=== PATIENT | male | born 1955 | race Caucasian/White ===

== ENCOUNTER 2017-09-21 12:27 | Inpatient (IN) | payer MEDICARE ==
[~2017-09-21] VITALS: Ht 182.9 cm; Wt 68.6 kg
[2017-09-21 14:00] VITALS: BP 104/60
[2017-09-21 16:00] VITALS: BP 94/61
[2017-09-21 16:28] LABS: BASOPHILS # (AUTO) 0.1 (0.0-0.1); BASOPHILS % 0.9 % (0.0-1.0); EOSINOPHILS # (AUTO) 0.4 (0.0-0.4); EOSINOPHILS % 4.2 % (0.0-6.0); HEMATOCRIT 36.9 % (38.2-49.6); LYMPHOCYTES # (AUTO) 2.4 (1.0-3.2); LYMPHOCYTES % 25.3 % (18.0-39.1); MEAN CORPUSCULAR HEMOGLOBIN 28.9 pg (28-32); MEAN CORPUSCULAR HGB CONC 32.5 g/dL (31-35); MEAN CORPUSCULAR VOLUME 88.9 fL (81-99); MONOCYTES # (AUTO) 0.7 (0.2-0.8); MONOCYTES % 7.5 % (4.4-11.3); NEUTROPHILS # (AUTO) 5.8 (2.1-6.9); NEUTROPHILS % 61.9 % (38.7-80.0); PLATELET COUNT 358 x10e3/uL (140-360); RED BLOOD COUNT 4.15 x10e6/uL (4.3-5.7); RED CELL DISTRIBUTION WIDTH 15.3 % (11.7-14.4)
[2017-09-21 16:42] LABS: ANION GAP 11.4 mmol/L (8-16); BLOOD UREA NITROGEN 10 mg/dL (7-26); BUN/CREATININE RATIO 23 (6-25); CALCIUM 9.3 mg/dL (8.4-10.2); CARBON DIOXIDE 29 mmol/L (22-29); CHLORIDE 102 mmol/L (98-107); CREATININE, SERUM 0.44 mg/dL (0.72-1.25); EST GLOMERULAR FILTRATION RATE > 60 ML/MIN (60-); GLUCOSE 103 mg/dL (74-118); POTASSIUM 4.4 mmol/L (3.5-5.1); SODIUM 138 mmol/L (136-145)
[2017-09-21] MEDS ORDERED: CLONAZEPAM1 MG PO (18:11)
[2017-09-21] MEDS ORDERED: GABAPENTIN400 MG PO (18:11)
[2017-09-21] MEDS ORDERED: MIDODRINE HCL2.5 MG PO (18:11)
[2017-09-21] MEDS ORDERED: NORCO 10-325 T1 EACH PO (18:14)
[2017-09-21] MEDS ORDERED: OXYBUTYNIN CHLOR5 MG PO (18:14)
[2017-09-21] MEDS ORDERED: OMEPRAZOLE40 MG (18:14)
[2017-09-21] MEDS ORDERED: SIMVASTATIN40 MG PO (18:17)
[2017-09-21] MEDS ORDERED: LUNESTA2 MG PO (18:17)
[2017-09-21] MEDS ORDERED: NITROFURANTOIN100 MG PO (19:00)
[2017-09-21] MEDS ORDERED: AMITIZA24 MCG PO (19:28)
[2017-09-21 20:28] VITALS: BP 116/60
[2017-09-21] MEDS: MIDODRINE HCL 5 MG TABLET PO SCH (20:54)
[2017-09-21] MEDS: GABAPENTIN 300 MG CAP PO SCH (20:54)
[2017-09-21] MEDS: PIPER-TAZ 3.375 GM 50 ML IV SCH ×2 (20:59→21:00)
[2017-09-21] MEDS ORDERED: SODIUM CHLORIDE 0.9% 250ML 250 ML ONE (21:41)
[2017-09-21] MEDS: ZOLPIDEM TARTRATE 5 MG TAB PO PRN ×2 (21:44→22:30)
[2017-09-21 22:50] VITALS: BP 116/60
[2017-09-21 23:30] VITALS: BP 127/61
[2017-09-22] MEDS ORDERED: PIPER-TAZ 3.375 GM 50 ML IV SCH (03:00)
[2017-09-22] MEDS ORDERED: MUCINEX DM ER1 EACH PO (03:15)
[2017-09-22] MEDS: GUAIFENESIN 600MG/DEXTROMETHORPHAN 30MG TABSR PO SCH ×2 (03:15→15:15)
[2017-09-22] MEDS ORDERED: SUMATRIPTAN SUC25 MG PO (03:15)
[2017-09-22] MEDS ORDERED: DIPHENHYDRAMINE HCL 25 MG CAP PO PRN (03:15)
[2017-09-22] MEDS ORDERED: BENADRYL25 M1 (03:15)
[2017-09-22] MEDS ORDERED: SUMATRIPTAN SUCCINATE 25 MG TAB PO PRN (03:15)
[2017-09-22 04:00] VITALS: BP 90/53
[2017-09-22 06:05] VITALS: BP 90/53
[2017-09-22 08:00] VITALS: BP 94/54
[2017-09-22 08:22] LABS: BASOPHILS # (AUTO) 0.1 (0.0-0.1); BASOPHILS % 0.8 % (0.0-1.0); EOSINOPHILS # (AUTO) 0.3 (0.0-0.4); HEMATOCRIT 35.7 % (38.2-49.6); HEMOGLOBIN 11.7 g/dL (14.0-18.0); LYMPHOCYTES # (AUTO) 2.2 (1.0-3.2); LYMPHOCYTES % 25.7 % (18.0-39.1); MEAN CORPUSCULAR HEMOGLOBIN 29.1 pg (28-32); MEAN CORPUSCULAR HGB CONC 32.8 g/dL (31-35); MEAN CORPUSCULAR VOLUME 88.8 fL (81-99); MONOCYTES # (AUTO) 0.7 (0.2-0.8); MONOCYTES % 8.7 % (4.4-11.3); NEUTROPHILS # (AUTO) 5.3 (2.1-6.9); NEUTROPHILS % 61.6 % (38.7-80.0); PLATELET COUNT 382 x10e3/uL (140-360); RED BLOOD COUNT 4.02 x10e6/uL (4.3-5.7)
[2017-09-22 08:43] LABS: ALANINE AMINOTRANSFERASE 19 IU/L (0-55); ALBUMIN 3.7 g/dL (3.5-5.0); ALBUMIN/GLOBULIN RATIO 1.2 (0.8-2.0); ALKALINE PHOSPHATASE 86 IU/L (40-150); ANION GAP 11.9 mmol/L (8-16); BLOOD UREA NITROGEN 9 mg/dL (7-26); BUN/CREATININE RATIO 20 (6-25); CALCIUM 9.3 mg/dL (8.4-10.2); CARBON DIOXIDE 27 mmol/L (22-29); CHLORIDE 100 mmol/L (98-107); CREATININE, SERUM 0.45 mg/dL (0.72-1.25); EST GLOMERULAR FILTRATION RATE > 60 ML/MIN (60-); GLUCOSE 91 mg/dL (74-118); POTASSIUM 3.9 mmol/L (3.5-5.1); SODIUM 135 mmol/L (136-145)
[2017-09-22] MEDS: MIDODRINE HCL 5 MG TABLET PO SCH ×3 (09:13→21:00)
[2017-09-22] MEDS: GABAPENTIN 300 MG CAP PO SCH ×3 (09:13→21:00)
[2017-09-22] MEDS: LUBIPROSTONE 24 MCG CAP PO SCH ×2 (09:13→16:30)
[2017-09-22] MEDS: NITROFURANTOIN MACROCRYSTALS 100 MG CAP PO SCH (09:13)
--- NOTE | 2017-09-22 09:16 | History and Physical ---
PRIMARY CARE PHYSICIAN: Dr. Son UROLOGIST: Dr. Perez in the [facility]. CHIEF COMPLAINT: Multidrug-resistant urinary tract infection. HISTORY OF PRESENT ILLNESS: This is a 62-year-old man who has multiple sclerosis being bedbound since 1989. Has a suprapubic catheter and has had recurrent infections associated with the catheter. Now, the patient was found to have multidrug-resistant organism by his home health services. Therefore, he was sent to the hospital. The actual organism is unclear. I do not have much information. I have discussed with the patient's telephone. She also does not know the name of the organism, but knows that it is multidrug-resistant. The patient has been started on meropenem and urology has been consulted. PAST MEDICAL HISTORY: Recurrent urinary tract infections, multiple sclerosis, status post suprapubic catheter placement, bedbound status/ambulatory dysfunction since 1989. PAST SURGICAL HISTORY: Knee surgery, suprapubic catheter placement. ALLERGIES: PER ELECTRONIC MEDICAL RECORDS. FAMILY HISTORY/SOCIAL HISTORY: The patient is . He has no children. No alcohol, illicits or cigarettes. MEDICATIONS: Per electronic medical records. REVIEW OF SYSTEMS: Denies any dizziness or chest pain. PHYSICAL EXAMINATION VITAL SIGNS: Reviewed. GENERAL: A tired-appearing man resting in bed. HEENT: Anicteric. Pupils respond to light. No oral lesions. CARDIOVASCULAR: Normal S1 and S2. LUNGS: Moderate breath sounds. ABDOMEN: Soft, nontender and nondistended. : He has a suprapubic catheter in place. EXTREMITIES: No edema. SKIN: Dry. PSYCHIATRIC: Flat affect. NEUROLOGICAL: He is awake, alert and appropriate. Oriented times 3. He has contractures of all extremities, but his mental status is okay. He is able to provide all the history. LABS: Reviewed. MEDICATIONS: Reviewed. ASSESSMENT AND PLAN: A 62-year-old man with: 1. Multidrug-resistant urinary tract infection: Organism is unknown to me, but the patient's has the information and will bring it to the hospital. In the meantime, will continue meropenem. Urology has been consulted. Will obtain urine culture and urinalysis here from the catheter. Regarding catheter changing, I will defer to urology. 2. Multiple sclerosis: Will continue gabapentin. 3. Ambulatory dysfunction: Will turn the patient every 2 hours to avoid decubitus ulcer. 4. Normocytic anemia, mild: Will follow. 5. Hyperlipidemia: Will continue statin medication. 6. Prophylaxis: Will use Lovenox and Pepcid. 7. Disposition: Follow up cultures. Follow up urology recommendations. Job#: [id number] RI
[2017-09-22 12:00] VITALS: BP 114/63
--- NOTE | 2017-09-22 13:56 | History and Physical ---
ADDENDUM The patient's infection would be catheter-associated urinary tract infection with multidrug-resistant organism. Job#: [id number] RI
[2017-09-22] MEDS ORDERED: MEROPENEM 1GM 100 ML IV SCH (14:00)
[2017-09-22] MEDS: MEROPENEM 1 GM VIAL IV SCH (14:20)
[2017-09-22] MEDS: CLONAZEPAM 1 MG TAB PO SCH ×2 (15:00→21:00)
[2017-09-22 16:00] VITALS: BP 118/58
[2017-09-22] MEDS: FAMOTIDINE 20 MG TAB PO SCH (16:30)
[2017-09-22] MEDS: ENOXAPARIN SOD INJ 40 MG/0.4 ML SYR SC SCH (16:30)
--- NOTE | 2017-09-22 16:31 | Consultation ---
DATE OF CONSULTATION: September 22, 2017 UROLOGIC CONSULTATION CONSULTATION CALLED BY: Dr. Noonan. CHIEF UROLOGIC COMPLAINT/REASON FOR CONSULTATION: Neurogenic bladder. HISTORY OF PRESENT ILLNESS: Jeffrey Kohler is a 62-year-old male with longstanding multiple sclerosis since 1989. He has had a chronic suprapubic tube and sees Dr. Gavino Perez downtown. He has had multiple chronic urinary tract infections, is admitted with an unknown infection. PAST MEDICAL HISTORY: As above. MEDICATIONS: Please see MAR. ALLERGIES: NKDA. SOCIAL HISTORY: No smoking, no drinking. FAMILY HISTORY: Denied urologic stones or malignancies. REVIEW OF SYSTEMS: Noncontributory other than problems mentioned above for 12 organ systems. PHYSICAL EXAMINATION: GENERAL: Elderly male in no acute distress. VITALS: Temperature 99.1. Pulse 65. Respirations 17. Blood pressure 94/54. HEENT: Sclerae anicteric. NECK: Supple. BACK: Without costovertebral angle tenderness. ABDOMEN: Soft, nontender. No masses. : Catheter draining clear yellow urine. EXTREMITIES: Contracted. NEUROLOGIC: Does not move extremities to command. PSYCH: Mood appropriate. SKIN: Normal color. PERTINENT LABORATORY DATA: Hemoglobin 12, hematocrit 36, platelet count 358,000, white cell count 9360. Sodium 138, potassium 4.4, chloride 102, bicarb 29, BUN 10, creatinine 0.44, glucose 103. IMPRESSION: 1. Chronic suprapubic tube. 2. Chronic urinary retention. 3. Neurogenic bladder. 4. Urinary tract infection. 5. Anemia. PLAN: 1. Will obtain a urinalysis with culture and sensitivity and adjust culture-specific antibiotics available. 2. Will obtain a renal ultrasound. 3. Will attempt to find out when the last time the patient's suprapubic tube was changed. Thank you for allowing me to participate in the care of your patient. We will be happy to follow him along with you. Job#: [id number] EV cc:ALFRED NOONAN MD
[2017-09-22 17:24] LABS: KETONES,URINE 1+ (NEGATIVE); LEUKOCYTE ESTERASE ,URINE 2+ (NEGATIVE); URINE UROBILINOGEN 1 mg/dL (0.2 - 1)
[2017-09-22 17:27] LABS: BILIRUBIN,URINE 1+ (NEGATIVE); CLARITY,URINE HAZY (CLEAR); COLOR,URINE AMBER (YELLOW); NITRITE,URINE POSITIVE (NEGATIVE); PROTEIN,URINE DIPSTICK TRACE (NEGATIVE)
[2017-09-22 17:32] LABS: BACTERIA,URINE FEW /HPF; CALCIUM OXALATE CRYSTALS,UR FEW (FEW); EPITHELIAL CELLS,URINE FEW /LPF; WBC,URINE (MAN) >50 /HPF (0-5)
[2017-09-22 17:33] LABS: MUCUS,URINE FEW (RARE)
[2017-09-22 20:00] VITALS: BP 110/66
[2017-09-22] MEDS: SIMVASTATIN 40 MG TAB PO SCH (21:00)
[2017-09-22] MEDS: ZOLPIDEM TARTRATE 5 MG TAB PO PRN (21:44)
[2017-09-23 00:10] VITALS: BP 123/59
[2017-09-23] MEDS: MEROPENEM 1 GM VIAL IV SCH ×4 (00:22→22:11)
[2017-09-23] MEDS: GUAIFENESIN 600MG/DEXTROMETHORPHAN 30MG TABSR PO SCH ×2 (03:15→14:32)
[2017-09-23 04:00] VITALS: BP 105/56
[2017-09-23 05:38] VITALS: BP 105/56
[2017-09-23] MEDS: NITROFURANTOIN MACROCRYSTALS 100 MG CAP PO SCH (08:25)
[2017-09-23] MEDS: FAMOTIDINE 20 MG TAB PO SCH ×2 (08:25→16:30)
[2017-09-23] MEDS: CLONAZEPAM 1 MG TAB PO SCH ×3 (08:25→20:39)
[2017-09-23] MEDS: LUBIPROSTONE 24 MCG CAP PO SCH ×2 (08:25→17:32)
[2017-09-23] MEDS: MIDODRINE HCL 5 MG TABLET PO SCH ×3 (08:25→20:39)
[2017-09-23] MEDS: GABAPENTIN 300 MG CAP PO SCH ×3 (08:25→20:39)
[2017-09-23 12:00] VITALS: BP 123/62
[2017-09-23] MEDS: OXYBUTYNIN CHLORIDE XL 5 MG TAB PO SCH (13:00)
[2017-09-23 16:00] VITALS: BP 121/61
[2017-09-23] MEDS: ENOXAPARIN SOD INJ 40 MG/0.4 ML SYR SC SCH (17:32)
[2017-09-23 20:00] VITALS: BP 117/62
[2017-09-23] MEDS: SIMVASTATIN 40 MG TAB PO SCH (20:39)
[2017-09-23] MEDS: ZOLPIDEM TARTRATE 5 MG TAB PO PRN (21:43)
[2017-09-24] VITALS (7 sets, daily range): BP systolic 94–132; BP diastolic 52–68
[2017-09-24] MEDS: GUAIFENESIN 600MG/DEXTROMETHORPHAN 30MG TABSR PO SCH ×2 (03:15→16:08)
[2017-09-24] MEDS: MEROPENEM 1 GM VIAL IV SCH (06:00)
[2017-09-24] MEDS: CLONAZEPAM 1 MG TAB PO SCH ×3 (09:05→20:08)
[2017-09-24] MEDS: GABAPENTIN 300 MG CAP PO SCH ×3 (09:05→20:08)
[2017-09-24] MEDS: NITROFURANTOIN MACROCRYSTALS 100 MG CAP PO SCH (09:05)
[2017-09-24] MEDS: OXYBUTYNIN CHLORIDE XL 5 MG TAB PO SCH (09:05)
[2017-09-24] MEDS: LUBIPROSTONE 24 MCG CAP PO SCH ×2 (09:05→16:57)
[2017-09-24] MEDS: FAMOTIDINE 20 MG TAB PO SCH ×2 (09:05→16:57)
[2017-09-24] MEDS: MIDODRINE HCL 5 MG TABLET PO SCH ×3 (09:05→20:08)
--- NOTE | 2017-09-24 11:48 | Diagnostic Imaging Report ---
EXAM: Renal Ultrasound INDICATION: \S\utis \[id number] \S\[id number] COMPARISON: None TECHNIQUE: Transverse and longitudinal images of the kidneys and bladder were obtained. FINDINGS: Limited study due to in ability to position the patient. Right Kidney: Size: 10.5 cm Echogenicity: Normal Parenchymal thickness: Normal Collecting system: No hydronephrosis Stones: None Cyst/Mass: 1.2 x 1.2 x 0.9 cm inferior pole cyst Left Kidney: Size: 9.8 cm Echogenicity: Normal Parenchymal thickness: Normal Collecting system: No hydronephrosis Stones: None Cyst/Mass: 1.7 x 1.8 x 1.9 cm midpole cyst. Bladder: Decompressed by Maria catheter in place. IMPRESSION: Unremarkable renal ultrasound exam, considering limitations of the study. Bilateral simple renal cysts. Signed by: Dr. Parviz Berry MD on 09/24/2017 11:44 AM
[2017-09-24] MEDS: PROMETHAZINE 12.5MG/ NACL 0.9% 12.5 MG/50 ML BAG IV PRN (12:38)
[2017-09-24] MEDS: POLYETHYLENE GLYCOL 3350 17 GM PACK PO SCH (14:13)
[2017-09-24] MEDS ORDERED: AMIKACIN SULFATE 250 MG/ML 2ML VIAL IV ONE (14:30)
--- NOTE | 2017-09-24 15:08 | Consultation ---
DATE OF CONSULTATION: September 24, 2017 REASON FOR CONSULTATION: Urinary tract infection due to resistant Pseudomonas aeruginosa. Thank you, Dr. Noonan, for asking me to see this patient. HISTORY OF PRESENT ILLNESS: Patient is a 62-year-old male with multidrug-resistant pseudomonas urinary tract infection. Patient was admitted from primary care provider's office with a urinary tract infection on September 21, 2017. Patient had malodorous urine during office visit. There was no fever or chills. At triage, he was noted to have a temperature of 96 degrees Fahrenheit, pulse 57, respiratory rate 18, and blood pressure 94/61. Routine laboratory studies showed white blood cells of 9360 and abnormal urinalysis. Urine culture later grew Pseudomonas aeruginosa. Renal ultrasound showed bilateral simple cysts. PAST MEDICAL HISTORY: Multiple sclerosis, neurogenic bladder, recurrent urinary tract infection. PAST SURGICAL HISTORY: Suprapubic catheter placement. ALLERGIES: PENICILLIN (THE PATIENT PASSED OUT). CURRENT MEDICATIONS: Including the current antibiotics. 1 g IVPB q.8 h. and nitrofurantoin 100 mg p.o. daily. IMMUNIZATIONS: Received influenza vaccine in July 2017. Pneumococcal vaccination status currently verified at this time. FAMILY HISTORY: Noncontributory. SOCIAL HISTORY: No alcohol or tobacco use. REVIEW OF SYSTEMS: As per history of present illness. PHYSICAL EXAMINATION GENERAL: No acute distress. VITAL SIGNS: T-max 98, pulse 65, respiratory rate 20, blood pressure 132/66. Weight 138 pounds. HEENT: Normocephalic. There is no icterus or injection of conjunctivae. There is no ear or nasal discharge. Moist oral mucosa. The oropharyngeal is moist. NECK: No JVD or lymphadenopathy. LUNGS: Good air entry bilaterally. HEART: Normal S1 and S2. ABDOMEN: exit site without drainage. Soft. EXTREMITIES: There is trace edema of the legs. No clubbing. No cyanosis. SKIN: There is a healing decubitus ulcer of the buttock. HEARTH FEEDER: Awake, alert and oriented. LABORATORY: On September 22, 2017, WBC 8550, hemoglobin 11.7 and platelets 382,000. Neutrophils 61.6, lymphs 25.7, monos 8.7, eosinophils 3, basophils 0.8. BUN 9, creatinine 0.45. Urine culture grew Pseudomonas aeruginosa. Renal ultrasound showed bilateral simple cysts, but otherwise unremarkable. IMPRESSION 1. Complicated urinary tract infection due to resistant Pseudomonas aeruginosa. 2. Neurogenic bladder. 3. Multiple sclerosis. PLAN 1. Change antibiotics to aztreonam 2 g IVPB q.8 h. plus amikacin 850 mg IVPB daily. 2. Change suprapubic catheter if not yet done. Job#: [id number] RI
[2017-09-24] MEDS ORDERED: AMIKACIN SULFATE IV ONE (15:30)
[2017-09-24] MEDS ORDERED: SODIUM CHLORIDE 0.9% IV ONE (15:30)
[2017-09-24] MEDS: ENOXAPARIN SOD INJ 40 MG/0.4 ML SYR SC SCH (16:57)
[2017-09-24] MEDS: SODIUM CHLORIDE 0.9% IV SCH (17:14)
[2017-09-24] MEDS: AZTREONAM IV SCH (17:14)
[2017-09-24] MEDS: SIMVASTATIN 40 MG TAB PO SCH (20:08)
[2017-09-24] MEDS ORDERED: AZTREONAM 2GM/NS 100ML 2 GM in AZTREONAM 2GM/NS 100ML 100 ML IV SCH (22:00)
[2017-09-25] VITALS (7 sets, daily range): BP systolic 90–100; BP diastolic 50–58
[2017-09-25] MEDS: SODIUM CHLORIDE 0.9% IV SCH ×4 (00:18→23:36)
[2017-09-25] MEDS: AZTREONAM IV SCH ×4 (00:18→23:36)
[2017-09-25] MEDS: GUAIFENESIN 600MG/DEXTROMETHORPHAN 30MG TABSR PO SCH ×2 (00:42→16:15)
[2017-09-25] MEDS: PROMETHAZINE 12.5MG/ NACL 0.9% 12.5 MG/50 ML BAG IV PRN (00:42)
[2017-09-25] MEDS: MIDODRINE HCL 5 MG TABLET PO SCH ×3 (08:19→20:03)
[2017-09-25] MEDS: GABAPENTIN 300 MG CAP PO SCH ×3 (08:19→20:03)
[2017-09-25] MEDS: OXYBUTYNIN CHLORIDE XL 5 MG TAB PO SCH (08:19)
[2017-09-25] MEDS: CLONAZEPAM 1 MG TAB PO SCH ×3 (08:19→20:03)
[2017-09-25] MEDS: FAMOTIDINE 20 MG TAB PO SCH ×2 (08:19→16:15)
[2017-09-25] MEDS: POLYETHYLENE GLYCOL 3350 17 GM PACK PO SCH (08:20)
[2017-09-25] MEDS: LUBIPROSTONE 24 MCG CAP PO SCH ×2 (08:20→16:15)
[2017-09-25] MEDS ORDERED: SODIUM CHLORIDE 0.9% IV SCH (09:45)
[2017-09-25] MEDS ORDERED: AMIKACIN SULFATE IV SCH (09:45)
[2017-09-25] MEDS ORDERED: AMIKACIN SULFATE 250 MG/ML 2ML VIAL IV ONE (09:45)
[2017-09-25] MEDS: ENOXAPARIN SOD INJ 40 MG/0.4 ML SYR SC SCH (16:15)
[2017-09-25] MEDS: SIMVASTATIN 40 MG TAB PO SCH (20:03)
[2017-09-26] VITALS (7 sets, daily range): BP systolic 90–101; BP diastolic 53–75
[2017-09-26] MEDS: GUAIFENESIN 600MG/DEXTROMETHORPHAN 30MG TABSR PO SCH ×2 (03:15→15:37)
[2017-09-26 06:34] LABS: BASOPHILS # (AUTO) 0.1 (0.0-0.1); BASOPHILS % 1.8 % (0.0-1.0); EOSINOPHILS # (AUTO) 0.5 (0.0-0.4); EOSINOPHILS % 9.4 % (0.0-6.0); HEMATOCRIT 34.4 % (38.2-49.6); HEMOGLOBIN 11.7 g/dL (14.0-18.0); LYMPHOCYTES % 36.8 % (18.0-39.1); MEAN CORPUSCULAR HEMOGLOBIN 29.5 pg (28-32); MEAN CORPUSCULAR VOLUME 86.6 fL (81-99); MONOCYTES # (AUTO) 0.9 (0.2-0.8); MONOCYTES % 15.9 % (4.4-11.3); NEUTROPHILS % 35.9 % (38.7-80.0); PLATELET COUNT 339 x10e3/uL (140-360); RED BLOOD COUNT 3.97 x10e6/uL (4.3-5.7); RED CELL DISTRIBUTION WIDTH 14.6 % (11.7-14.4)
[2017-09-26 07:09] LABS: ANION GAP 11.2 mmol/L (8-16); BLOOD UREA NITROGEN 6 mg/dL (7-26); BUN/CREATININE RATIO 16 (6-25); CALCIUM 8.8 mg/dL (8.4-10.2); CARBON DIOXIDE 28 mmol/L (22-29); CHLORIDE 102 mmol/L (98-107); CREATININE, SERUM 0.37 mg/dL (0.72-1.25); EST GLOMERULAR FILTRATION RATE > 60 ML/MIN (60-); GLUCOSE 90 mg/dL (74-118); POTASSIUM 3.2 mmol/L (3.5-5.1); SODIUM 138 mmol/L (136-145)
[2017-09-26] MEDS: FAMOTIDINE 20 MG TAB PO SCH ×2 (08:33→17:03)
[2017-09-26] MEDS: SODIUM CHLORIDE 0.9% IV SCH ×2 (08:34→17:03)
[2017-09-26] MEDS: AZTREONAM IV SCH ×2 (08:34→17:03)
[2017-09-26] MEDS: LUBIPROSTONE 24 MCG CAP PO SCH ×2 (08:34→17:03)
[2017-09-26] MEDS: GABAPENTIN 300 MG CAP PO SCH ×3 (08:42→21:40)
[2017-09-26] MEDS: OXYBUTYNIN CHLORIDE XL 5 MG TAB PO SCH (08:42)
[2017-09-26] MEDS: CLONAZEPAM 1 MG TAB PO SCH ×3 (08:42→21:40)
[2017-09-26] MEDS: MIDODRINE HCL 5 MG TABLET PO SCH ×3 (08:42→21:40)
[2017-09-26] MEDS: POLYETHYLENE GLYCOL 3350 17 GM PACK PO SCH (08:42)
[2017-09-26] MEDS ORDERED: POTASSIUM CHLORIDE 20 MEQ TAB CR PO STA (09:17)
[2017-09-26] MEDS ORDERED: AMIKACIN SULFATE 250 MG/ML 2ML VIAL IV ONE (10:15)
[2017-09-26] MEDS ORDERED: SODIUM CHLORIDE 0.9% IV SCH (11:00)
[2017-09-26] MEDS ORDERED: AMIKACIN SULFATE IV SCH (11:00)
[2017-09-26] MEDS: ENOXAPARIN SOD INJ 40 MG/0.4 ML SYR SC SCH (17:03)
[2017-09-26] MEDS: SIMVASTATIN 40 MG TAB PO SCH (21:40)
[2017-09-26] MEDS: ZOLPIDEM TARTRATE 5 MG TAB PO PRN (21:44)
[2017-09-27] VITALS: BP 88/54
[2017-09-27] MEDS: AZTREONAM IV SCH ×3 (01:00→16:00)
[2017-09-27] MEDS: SODIUM CHLORIDE 0.9% IV SCH ×3 (01:00→16:00)
[2017-09-27] MEDS ORDERED: SODIUM CHLORIDE 0.9% 250ML 250 ML ONE (01:23)
[2017-09-27] MEDS: GUAIFENESIN 600MG/DEXTROMETHORPHAN 30MG TABSR PO SCH ×2 (03:30→15:15)
[2017-09-27 07:30] VITALS: BP 101/61
[2017-09-27 07:45] LABS: BASOPHILS # (AUTO) 0.1 (0.0-0.1); BASOPHILS % 1.6 % (0.0-1.0); EOSINOPHILS # (AUTO) 0.5 (0.0-0.4); EOSINOPHILS % 6.3 % (0.0-6.0); HEMATOCRIT 34.6 % (38.2-49.6); HEMOGLOBIN 11.4 g/dL (14.0-18.0); LYMPHOCYTES # (AUTO) 2.2 (1.0-3.2); LYMPHOCYTES % 28.1 % (18.0-39.1); MEAN CORPUSCULAR HEMOGLOBIN 29.1 pg (28-32); MEAN CORPUSCULAR HGB CONC 32.9 g/dL (31-35); MEAN CORPUSCULAR VOLUME 88.3 fL (81-99); MONOCYTES # (AUTO) 0.9 (0.2-0.8); MONOCYTES % 11.9 % (4.4-11.3); NEUTROPHILS % 51.6 % (38.7-80.0); PLATELET COUNT 357 x10e3/uL (140-360); RED BLOOD COUNT 3.92 x10e6/uL (4.3-5.7); RED CELL DISTRIBUTION WIDTH 15.1 % (11.7-14.4)
[2017-09-27 08:00] LABS: ANION GAP 8.6 mmol/L (8-16); BLOOD UREA NITROGEN 8 mg/dL (7-26); BUN/CREATININE RATIO 22 (6-25); CALCIUM 8.4 mg/dL (8.4-10.2); CARBON DIOXIDE 28 mmol/L (22-29); CHLORIDE 103 mmol/L (98-107); CREATININE, SERUM 0.36 mg/dL (0.72-1.25); EST GLOMERULAR FILTRATION RATE > 60 ML/MIN (60-); GLUCOSE 88 mg/dL (74-118); MAGNESIUM 1.9 MG/DL (1.3-2.1); POTASSIUM 3.6 mmol/L (3.5-5.1); SODIUM 136 mmol/L (136-145)
[2017-09-27] MEDS: MIDODRINE HCL 5 MG TABLET PO SCH ×3 (09:00→22:13)
[2017-09-27 09:08] VITALS: BP 91/54
[2017-09-27] MEDS: OXYBUTYNIN CHLORIDE XL 5 MG TAB PO SCH (09:16)
[2017-09-27] MEDS: LUBIPROSTONE 24 MCG CAP PO SCH ×2 (09:16→17:00)
[2017-09-27] MEDS: CLONAZEPAM 1 MG TAB PO SCH ×3 (09:16→22:13)
[2017-09-27] MEDS: FAMOTIDINE 20 MG TAB PO SCH ×2 (09:16→16:30)
[2017-09-27] MEDS: GABAPENTIN 300 MG CAP PO SCH ×3 (09:18→22:13)
[2017-09-27] MEDS: POLYETHYLENE GLYCOL 3350 17 GM PACK PO SCH (09:18)
[2017-09-27] MEDS ORDERED: AMIKACIN SULFATE 250 MG/ML 2ML VIAL IV ONE (09:45)
[2017-09-27] MEDS ORDERED: SODIUM CHLORIDE 0.9% IV ONE (10:15)
[2017-09-27] MEDS ORDERED: AMIKACIN SULFATE IV ONE (10:15)
[2017-09-27 16:42] VITALS: BP 99/56
[2017-09-27] MEDS: ENOXAPARIN SOD INJ 40 MG/0.4 ML SYR SC SCH (17:00)
[2017-09-27 20:00] VITALS: BP 102/63
[2017-09-27] MEDS: SIMVASTATIN 40 MG TAB PO SCH (22:13)
[2017-09-27] MEDS: ZOLPIDEM TARTRATE 5 MG TAB PO PRN (22:18)
[2017-09-28] VITALS (8 sets, daily range): BP systolic 89–109; BP diastolic 57–68
[2017-09-28] MEDS: SODIUM CHLORIDE 0.9% IV SCH ×3 (00:12→17:41)
[2017-09-28] MEDS: AZTREONAM IV SCH ×3 (00:12→17:41)
[2017-09-28] MEDS: GUAIFENESIN 600MG/DEXTROMETHORPHAN 30MG TABSR PO SCH ×2 (03:15→14:53)
[2017-09-28 06:46] LABS: BASOPHILS # (AUTO) 0.1 (0.0-0.1); BASOPHILS % 1.4 % (0.0-1.0); EOSINOPHILS # (AUTO) 0.5 (0.0-0.4); EOSINOPHILS % 6.7 % (0.0-6.0); HEMATOCRIT 32.1 % (38.2-49.6); HEMOGLOBIN 10.7 g/dL (14.0-18.0); LYMPHOCYTES # (AUTO) 2.2 (1.0-3.2); LYMPHOCYTES % 32.3 % (18.0-39.1); MEAN CORPUSCULAR HEMOGLOBIN 29.4 pg (28-32); MEAN CORPUSCULAR HGB CONC 33.3 g/dL (31-35); MEAN CORPUSCULAR VOLUME 88.2 fL (81-99); MONOCYTES # (AUTO) 0.7 (0.2-0.8); MONOCYTES % 9.8 % (4.4-11.3); NEUTROPHILS # (AUTO) 3.4 (2.1-6.9); NEUTROPHILS % 49.5 % (38.7-80.0); PLATELET COUNT 307 x10e3/uL (140-360); RED BLOOD COUNT 3.64 x10e6/uL (4.3-5.7); RED CELL DISTRIBUTION WIDTH 15.1 % (11.7-14.4)
[2017-09-28 07:06] LABS: ANION GAP 11.7 mmol/L (8-16); BLOOD UREA NITROGEN 8 mg/dL (7-26); BUN/CREATININE RATIO 23 (6-25); CALCIUM 8.6 mg/dL (8.4-10.2); CARBON DIOXIDE 26 mmol/L (22-29); CHLORIDE 103 mmol/L (98-107); CREATININE, SERUM 0.35 mg/dL (0.72-1.25); EST GLOMERULAR FILTRATION RATE > 60 ML/MIN (60-); GLUCOSE 84 mg/dL (74-118); POTASSIUM 3.7 mmol/L (3.5-5.1); SODIUM 137 mmol/L (136-145)
[2017-09-28 07:56] LABS: PLATELET ESTIMATE ADEQUATE; PLATELET MORPHOLOGY COMMENT FEW LARGE
[2017-09-28] MEDS: CLONAZEPAM 1 MG TAB PO SCH ×3 (09:58→21:30)
[2017-09-28] MEDS: LUBIPROSTONE 24 MCG CAP PO SCH ×2 (09:58→17:41)
[2017-09-28] MEDS: OXYBUTYNIN CHLORIDE XL 5 MG TAB PO SCH (09:58)
[2017-09-28] MEDS: GABAPENTIN 300 MG CAP PO SCH ×3 (09:58→21:52)
[2017-09-28] MEDS: MIDODRINE HCL 5 MG TABLET PO SCH ×3 (09:58→17:41)
[2017-09-28] MEDS: POLYETHYLENE GLYCOL 3350 17 GM PACK PO SCH (09:58)
[2017-09-28] MEDS: FAMOTIDINE 20 MG TAB PO SCH ×2 (09:58→17:41)
[2017-09-28] MEDS: HYDROCODONE/APAP 5MG-325MG TAB PO PRN (14:54)
[2017-09-28] MEDS ORDERED: SODIUM CHLORIDE 0.9% IV ONE (17:00)
[2017-09-28] MEDS ORDERED: AMIKACIN SULFATE 250 MG/ML 2ML VIAL IV ONE (17:00)
[2017-09-28] MEDS ORDERED: AMIKACIN SULFATE IV ONE (17:00)
[2017-09-28] MEDS: ENOXAPARIN SOD INJ 40 MG/0.4 ML SYR SC SCH (17:41)
[2017-09-28] MEDS: SIMVASTATIN 40 MG TAB PO SCH (21:52)
[2017-09-29] VITALS (8 sets, daily range): BP systolic 94–127; BP diastolic 56–72
[2017-09-29] MEDS: AZTREONAM IV SCH ×3 (00:25→17:20)
[2017-09-29] MEDS: SODIUM CHLORIDE 0.9% IV SCH ×3 (00:25→17:20)
[2017-09-29] MEDS: ZOLPIDEM TARTRATE 5 MG TAB PO PRN ×2 (01:21→21:05)
[2017-09-29] MEDS: GUAIFENESIN 600MG/DEXTROMETHORPHAN 30MG TABSR PO SCH ×2 (04:45→14:53)
[2017-09-29] MEDS: FAMOTIDINE 20 MG TAB PO SCH ×2 (08:45→17:20)
[2017-09-29] MEDS: LUBIPROSTONE 24 MCG CAP PO SCH ×2 (08:45→17:00)
[2017-09-29] MEDS: OXYBUTYNIN CHLORIDE XL 5 MG TAB PO SCH (08:45)
[2017-09-29] MEDS: POLYETHYLENE GLYCOL 3350 17 GM PACK PO SCH (08:45)
[2017-09-29] MEDS: CLONAZEPAM 1 MG TAB PO SCH ×3 (08:45→20:43)
[2017-09-29] MEDS: MIDODRINE HCL 5 MG TABLET PO SCH ×3 (08:45→17:20)
[2017-09-29] MEDS: BALSAM PERU/CASTOR OIL 60 GM OINT...G. TP SCH (08:45)
[2017-09-29] MEDS: GABAPENTIN 300 MG CAP PO SCH ×3 (08:45→20:43)
[2017-09-29 09:28] LABS: BASOPHILS # (AUTO) 0.1 (0.0-0.1); BASOPHILS % 1.5 % (0.0-1.0); EOSINOPHILS # (AUTO) 0.3 (0.0-0.4); EOSINOPHILS % 6.4 % (0.0-6.0); HEMATOCRIT 33.2 % (38.2-49.6); LYMPHOCYTES # (AUTO) 1.9 (1.0-3.2); MEAN CORPUSCULAR HEMOGLOBIN 29.6 pg (28-32); MEAN CORPUSCULAR HGB CONC 33.1 g/dL (31-35); MEAN CORPUSCULAR VOLUME 89.2 fL (81-99); MONOCYTES # (AUTO) 0.6 (0.2-0.8); MONOCYTES % 11.3 % (4.4-11.3); NEUTROPHILS # (AUTO) 2.4 (2.1-6.9); NEUTROPHILS % 45.8 % (38.7-80.0); PLATELET COUNT 314 x10e3/uL (140-360); RED BLOOD COUNT 3.72 x10e6/uL (4.3-5.7); RED CELL DISTRIBUTION WIDTH 15.2 % (11.7-14.4)
[2017-09-29 09:48] LABS: % IRON SATURATION 22 % (15-50); ANION GAP 11.1 mmol/L (8-16); BLOOD UREA NITROGEN 6 mg/dL (7-26); BUN/CREATININE RATIO 15 (6-25); CALCIUM 8.4 mg/dL (8.4-10.2); CARBON DIOXIDE 30 mmol/L (22-29); CHLORIDE 104 mmol/L (98-107); CREATININE, SERUM 0.39 mg/dL (0.72-1.25); EST GLOMERULAR FILTRATION RATE > 60 ML/MIN (60-); GLUCOSE 124 mg/dL (74-118); IRON 60 ug/dL (65-175); MAGNESIUM 1.8 MG/DL (1.3-2.1); POTASSIUM 3.1 mmol/L (3.5-5.1); SODIUM 142 mmol/L (136-145); TOTAL IRON BINDING CAPACITY 277 ug/dL (261-478); TRANSFERRIN 198 mg/dL (174-364)
[2017-09-29 10:10] LABS: FERRITIN 96.43 ng/mL (21.81-274.66)
[2017-09-29 10:22] LABS: FOLATE 13.4 ng/mL (7.0-15.4)
[2017-09-29] MEDS ORDERED: POTASSIUM CHLORIDE 20 MEQ TAB CR PO ONE (13:30)
[2017-09-29] MEDS: ENOXAPARIN SOD INJ 40 MG/0.4 ML SYR SC SCH (17:20)
[2017-09-29] MEDS ORDERED: EYE LUBRICANT OPTH OINT 3.5GM TUBE OP PRN (17:45)
[2017-09-29] MEDS: ARTIFICIAL TEARS (OPTH) 15 ML BTL OP PRN (18:14)
[2017-09-29] MEDS: SIMVASTATIN 40 MG TAB PO SCH (20:43)
[2017-09-29 21:38] LABS: BILIRUBIN,URINE NEGATIVE (NEGATIVE); CLARITY,URINE CLEAR (CLEAR); COLOR,URINE YELLOW (YELLOW); KETONES,URINE NEGATIVE (NEGATIVE); LEUKOCYTE ESTERASE ,URINE NEGATIVE (NEGATIVE); NITRITE,URINE NEGATIVE (NEGATIVE); PROTEIN,URINE DIPSTICK NEGATIVE (NEGATIVE); URINE UROBILINOGEN 1 mg/dL (0.2 - 1)
[2017-09-29 22:02] LABS: BACTERIA,URINE FEW /HPF; EPITHELIAL CELLS,URINE RARE /LPF
[2017-09-30] VITALS (9 sets, daily range): BP systolic 98–124; BP diastolic 57–65
[2017-09-30] MEDS: AZTREONAM IV SCH ×3 (00:30→15:56)
[2017-09-30] MEDS: SODIUM CHLORIDE 0.9% IV SCH ×3 (00:30→15:56)
[2017-09-30] MEDS: GUAIFENESIN 600MG/DEXTROMETHORPHAN 30MG TABSR PO SCH ×2 (04:15→15:56)
[2017-09-30 06:58] LABS: ANION GAP 10.3 mmol/L (8-16); BLOOD UREA NITROGEN 6 mg/dL (7-26); BUN/CREATININE RATIO 16 (6-25); CALCIUM 8.6 mg/dL (8.4-10.2); CARBON DIOXIDE 30 mmol/L (22-29); CHLORIDE 101 mmol/L (98-107); CREATININE, SERUM 0.37 mg/dL (0.72-1.25); EST GLOMERULAR FILTRATION RATE > 60 ML/MIN (60-); GLUCOSE 87 mg/dL (74-118); POTASSIUM 3.3 mmol/L (3.5-5.1); SODIUM 138 mmol/L (136-145)
[2017-09-30 07:29] LABS: BASOPHILS # (AUTO) 0.1 (0.0-0.1); BASOPHILS % 1.3 % (0.0-1.0); EOSINOPHILS # (AUTO) 0.3 (0.0-0.4); EOSINOPHILS % 4.1 % (0.0-6.0); HEMATOCRIT 33.8 % (38.2-49.6); LYMPHOCYTES # (AUTO) 2.5 (1.0-3.2); LYMPHOCYTES % 35.2 % (18.0-39.1); MEAN CORPUSCULAR HGB CONC 32.5 g/dL (31-35); MEAN CORPUSCULAR VOLUME 89.2 fL (81-99); MONOCYTES # (AUTO) 0.8 (0.2-0.8); MONOCYTES % 11.2 % (4.4-11.3); NEUTROPHILS # (AUTO) 3.4 (2.1-6.9); NEUTROPHILS % 48.1 % (38.7-80.0); PLATELET COUNT 317 x10e3/uL (140-360); RED BLOOD COUNT 3.79 x10e6/uL (4.3-5.7); RED CELL DISTRIBUTION WIDTH 15.2 % (11.7-14.4)
[2017-09-30] MEDS: ARTIFICIAL TEARS (OPTH) 15 ML BTL OP PRN (09:59)
[2017-09-30] MEDS: FAMOTIDINE 20 MG TAB PO SCH ×2 (09:59→15:56)
[2017-09-30] MEDS: POLYETHYLENE GLYCOL 3350 17 GM PACK PO SCH (09:59)
[2017-09-30] MEDS: LUBIPROSTONE 24 MCG CAP PO SCH ×2 (09:59→15:56)
[2017-09-30] MEDS: CLONAZEPAM 1 MG TAB PO SCH ×3 (09:59→21:21)
[2017-09-30] MEDS: MIDODRINE HCL 5 MG TABLET PO SCH ×3 (09:59→15:56)
[2017-09-30] MEDS: GABAPENTIN 300 MG CAP PO SCH ×3 (09:59→21:21)
[2017-09-30] MEDS: OXYBUTYNIN CHLORIDE XL 5 MG TAB PO SCH (09:59)
[2017-09-30] MEDS: BALSAM PERU/CASTOR OIL 60 GM OINT...G. TP SCH ×2 (09:59→15:57)
[2017-09-30] MEDS: HYDROCODONE/APAP 5MG-325MG TAB PO PRN (10:40)
[2017-09-30] MEDS ORDERED: POTASSIUM CHLORIDE 20 MEQ TAB CR PO ONE (14:30)
[2017-09-30] MEDS ORDERED: HYDROCODONE/APAP 5MG-325MG TAB PO PRN (16:15)
[2017-09-30] MEDS: ENOXAPARIN SOD INJ 40 MG/0.4 ML SYR SC SCH (17:59)
[2017-09-30] MEDS: SIMVASTATIN 40 MG TAB PO SCH (21:21)
[2017-09-30] MEDS: ZOLPIDEM TARTRATE 5 MG TAB PO PRN (21:56)
[2017-10-01] MEDS: AZTREONAM IV SCH ×3 (00:14→15:41)
[2017-10-01] MEDS: SODIUM CHLORIDE 0.9% IV SCH ×3 (00:14→15:41)
[2017-10-01 00:34] VITALS: BP 122/60
[2017-10-01] MEDS: GUAIFENESIN 600MG/DEXTROMETHORPHAN 30MG TABSR PO SCH ×2 (03:20→15:15)
[2017-10-01 04:30] VITALS: BP 93/52
[2017-10-01 08:00] VITALS: BP 97/54
[2017-10-01] MEDS: FAMOTIDINE 20 MG TAB PO SCH ×2 (08:30→17:32)
[2017-10-01] MEDS ORDERED: NYSTATIN 15 GM POWDER UD BTL TOP SCH (09:00)
[2017-10-01] MEDS: MIDODRINE HCL 5 MG TABLET PO SCH ×3 (09:26→16:00)
[2017-10-01] MEDS: POLYETHYLENE GLYCOL 3350 17 GM PACK PO SCH (09:27)
[2017-10-01] MEDS: CLONAZEPAM 1 MG TAB PO SCH ×2 (09:27→16:30)
[2017-10-01] MEDS: GABAPENTIN 300 MG CAP PO SCH ×2 (09:27→15:00)
[2017-10-01] MEDS: OXYBUTYNIN CHLORIDE XL 5 MG TAB PO SCH (09:27)
[2017-10-01] MEDS: LUBIPROSTONE 24 MCG CAP PO SCH ×2 (09:27→17:32)
[2017-10-01 12:00] VITALS: BP 108/71
[2017-10-01 14:53] VITALS: BP 108/71
[2017-10-01 16:00] VITALS: BP 120/69
[2017-10-01] MEDS: ENOXAPARIN SOD INJ 40 MG/0.4 ML SYR SC SCH (17:32)
--- NOTE | 2017-10-02 01:00 | Discharge Summary ---
ADMISSION DIAGNOSES: 1. Multidrug-resistant urinary tract infection. 2. Multiple sclerosis. 3. Ambulatory dysfunction. 4. Normocytic anemia. 5. Hyperlipidemia. DISCHARGE DIAGNOSES: 1. Multidrug-resistant urinary tract infection. 2. Multiple sclerosis. 3. Ambulatory dysfunction. 4. Normocytic anemia. 5. Hyperlipidemia. HISTORY: Patient has a history of recurrent UTI, multiple sclerosis, status post suprapubic catheter placement, bedbound/ambulatory dysfunction since 1989. Surgical history of knee surgery and suprapubic catheter placement. HOSPITAL COURSE: [id number]-old man who has recurrent UTIs, was found to have a multidrug-resistant organism by his home health services, therefore he was sent to the hospital. Patient was started on Merrem, and urology has been consulted. This patient was originally a patient of Dr. Fernandez on admission, then was switched over to Dr. Noonan service. Per urology, UA and culture were obtained, renal ultrasound obtained and ultimately the suprapubic catheter was changed on September 26 per urology. ID was consulted for the multidrug-resistant UTI. Renal ultrasound showed unremarkable renal ultrasound considering limitations of the study, bilateral simple renal cysts. Patient was found to have pseudomonas in the urine and was started on IV antibiotics. Per infectious disease, patient needed the antibiotics for 7 days. Upon trying to transfer the patient to a longterm facility, they did not want to take the IV antibiotics because they were too expensive, and ID was unwilling to change the antibiotics to anything else. So, therefore patient had to stay in the hospital during the IV treatment. By the time SNF was approved, anyways the patient had about 3 days left of hospitalization, so patient and family felt comfortable staying in the hospital. Patient was discharged home after receiving 7 days of antibiotics. Repeat urine culture negative. Patient sent home with home health for PT/OT and wound care of the sacrum along with home medications resumed. Dictated by Ngozi Loya NP ALFRED NOONAN MD Job#: [id number]
== END 2017-10-01 18:30 | disposition home or self-care (01) | DRG 699 ==
LOC: MED/SURG2 14:41 → OBSVTOIN 09-24 11:23
PROVIDERS: ADMIT Internal Medicine; ATTEND Internal Medicine
PROC: 02HV33Z Insertion of Infusion Device into Superior Vena Cava, Percutaneous Approach (ICD-10-PCS; principal; 2017-09-24)
DX: T83.511A Infection and inflammatory reaction due to indwelling urethral catheter, initial encounter (principal); E87.1 Hypo-osmolality and hyponatremia; G35 Multiple sclerosis; B96.5 Pseudomonas (aeruginosa) (mallei) (pseudomallei) as the cause of diseases classified elsewhere; Z16.30 Resistance to unspecified antimicrobial drugs; N31.2 Flaccid neuropathic bladder, not elsewhere classified; N39.498 Other specified urinary incontinence; N32.81 Overactive bladder; D64.9 Anemia, unspecified; Z74.01 Bed confinement status; N28.1 Cyst of kidney, acquired; K59.00 Constipation, unspecified; R26.9 Unspecified abnormalities of gait and mobility; E87.6 Hypokalemia; M24.50 Contracture, unspecified joint
CPT/HCPCS: 36415; 76770; 80048; 80053; 80150; 81001; 82607; 82728; 82746; 83540; 83735; 84466; 85025; 87086; 87186; 97139; G0378; J1650; J2185; J2543; J2550; J7050